=== PATIENT | female | born 1970 | race African-American/Black ===

== ENCOUNTER 2017-06-25 19:40 | Emergency (ER) | payer OTHER ==
[~2017-06-25] VITALS: Ht 160 cm; Wt 115.0 kg
[2017-06-25 23:40] VITALS: BP 200/114
[2017-06-26] MEDS ORDERED: CLONIDINE 0.2MG TABLET PO ONE (00:45)
== END 2017-06-26 02:14 | disposition home or self-care (01) ==
LOC: ER 19:40
DX: R60.0 Localized edema (principal); M79.662 Pain in left lower leg; I10 Essential (primary) hypertension
CPT/HCPCS: 93971; 99284; J7030; Z7610

== ENCOUNTER 2022-03-23 17:20 | Inpatient (IN) | payer OTHER ==
[~2022-03-23] VITALS: Ht 162.6 cm; Wt 100.4 kg
[2022-03-23] MEDS ORDERED: SODIUM CHLORIDE 0.9% 1,000 ML IV ONE (18:00)
[2022-03-23 18:16] LABS: MEAN CORPUSCULAR HEMOGLOBIN 12.6 pg (28.0-32.0); MEAN CORPUSCULAR VOLUME 51.7 fL (81.0-99.0); RED CELL DISTRIBUTION WIDTH 25.6 % (11.6-14.6)
[2022-03-23 18:22] LABS: HEMATOCRIT. 14.5 % (36.0-48.0); HEMOGLOBIN. 3.5 g/dL (12.0-16.0)
[2022-03-23 18:24] LABS: HCG SCREEN NEGATIVE
[2022-03-23 18:26] LABS: CHLORIDE 112 mEq/L (98-107)
[2022-03-23 18:28] LABS: INR 1.1; PARTIAL THROMBOPLASTIN TIME 21.8 sec (23.4-31.0); PROTHROMBIN TIME 11.3 sec (9.6-11.0)
[2022-03-23 18:40] LABS: PLATELET 314 x1000/uL (130-400)
[2022-03-23 18:41] LABS: MEAN PLATELET VOLUME 8.8 fl (7.4-10.4)
[2022-03-23 18:42] LABS: PLATELET ESTIMATE NORMAL
[2022-03-23] MEDS ORDERED: ONDANSETRON HCL 4MG/2ML INJ IV PRN (19:30)
[2022-03-23] MEDS ORDERED: KETOROLAC 15MG/ML VIAL IV PRN (19:30)
[2022-03-23] MEDS ORDERED: DOCUSATE SODIUM 100MG CAPSULE PO PRN (19:30)
[2022-03-23] MEDS ORDERED: NITROGLYCERIN 0.4MG TABLET SL SL PRN (19:30)
[2022-03-23] MEDS ORDERED: GUAIFENESIN 200MG/10ML SUGAR FREE UDC PO PRN (19:30)
[2022-03-23] MEDS ORDERED: ACETAMINOPHEN 325MG TABLET PO PRN ×2 (19:30)
[2022-03-23] MEDS ORDERED: ZOLPIDEM TARTRATE 5MG TABLET PO PRN (19:30)
[2022-03-23] MEDS ORDERED: MAGNESIUM/ALUMINUM HYDROXIDE/SIMETHICONE 30ML UDC PO PRN (19:30)
[2022-03-23] MEDS ORDERED: IPRATROPIUM/ALBUTEROL 0.5-3(2.5)MG/3ML NEB NEB PRN (19:30)
[2022-03-23] MEDS ORDERED: POTASSIUM CHLORIDE 20MEQ TABLET SR PO NR (20:00)
[2022-03-23] MEDS: AMLODIPINE 10MG TABLET PO SCH (20:19)
[2022-03-23 20:30] LABS: FOLIC ACID (FOLATE) SERUM >20 ng/mL ng/mL (>5.38); VITAMIN B12 SERUM 449 pg/mL (211-911)
[2022-03-23] MEDS: FAMOTIDINE 20MG TABLET PO SCH (23:18)
[2022-03-23] MEDS: METOPROLOL TARTRATE 25MG TABLET PO SCH (23:18)
[2022-03-23 23:38] LABS: MEAN CORPUSCULAR HEMOGLOBIN 15.3 pg (28.0-32.0); MEAN CORPUSCULAR VOLUME 56.5 fL (81.0-99.0); MEAN PLATELET VOLUME 8.4 fl (7.4-10.4); PLATELET 260 x1000/uL (130-400); RED BLOOD CELL COUNT 2.89 mill/uL (4.2-5.4); RED CELL DISTRIBUTION WIDTH 30.2 % (11.6-14.6)
[2022-03-23 23:44] LABS: HEMATOCRIT. 16.3 % (36.0-48.0); HEMOGLOBIN. 4.4 g/dL (12.0-16.0)
[2022-03-23 23:56] LABS: CREATINE KINASE 51 IU/L (26-192); CREATINE KINASE MB FRACTION < 1.0 ng/mL (0.5-3.6)
[2022-03-24] VITALS (10 sets, daily range): BP systolic 100–180; BP diastolic 69–92
[2022-03-24 04:32] LABS: PLATELET ESTIMATE NORMAL
[2022-03-24] MEDS ORDERED: HYDR25TA PO (05:19)
[2022-03-24] MEDS ORDERED: ATEN50TA PO (05:20)
[2022-03-24] MEDS: METOPROLOL TARTRATE 25MG TABLET PO SCH ×2 (09:00→20:07)
[2022-03-24] MEDS: FAMOTIDINE 20MG TABLET PO SCH ×2 (10:19→20:07)
[2022-03-24] MEDS: AMLODIPINE 10MG TABLET PO SCH (10:19)
[2022-03-24 15:51] LABS: BASOPHILS % 1.9 % (0.0-2.0); EOSINOPHILS % 1.3 % (0.0-5.0); LYMPHOCYTES % 16.9 % (20.0-50.0); MEAN CORPUSCULAR HEMOGLOBIN 17.5 pg (28.0-32.0); MEAN CORPUSCULAR VOLUME 62.4 fL (81.0-99.0); MEAN PLATELET VOLUME 8.7 fl (7.4-10.4); MONOCYTES % 8.4 % (2.0-8.0); NEUTROPHILS % 71.5 % (40.0-76.0); PLATELET 316 x1000/uL (130-400); RED BLOOD CELL COUNT 3.43 mill/uL (4.2-5.4)
[2022-03-24 16:04] LABS: CHLORIDE 112 mEq/L (98-107)
[2022-03-24 16:08] LABS: HEMATOCRIT. 21.4 % (36.0-48.0)
[2022-03-24 16:11] LABS: PHOSPHORUS 2.5 mg/dL (2.5-4.9)
[2022-03-24 16:15] LABS: CREATINE KINASE 51 IU/L (26-192); CREATINE KINASE MB FRACTION < 1.0 ng/mL (0.5-3.6)
[2022-03-24 16:31] LABS: PLATELET ESTIMATE NORMAL
[2022-03-24] MEDS: IRON SUCROSE COMPLEX 100 MG/5 ML ML IV SCH (18:41)
[2022-03-25] VITALS (11 sets, daily range): BP systolic 132–174; BP diastolic 72–94
[2022-03-25] MEDS: CLONIDINE 0.1MG TABLET PO PRN (03:04)
[2022-03-25] MEDS ORDERED: IRON SUCROSE COMPLEX 100 MG/5 ML ML IV SCH (09:00)
[2022-03-25] MEDS: FAMOTIDINE 20MG TABLET PO SCH ×2 (09:13→20:07)
[2022-03-25] MEDS: METOPROLOL TARTRATE 25MG TABLET PO SCH ×2 (09:14→20:07)
[2022-03-25] MEDS: AMLODIPINE 10MG TABLET PO SCH (09:15)
[2022-03-25 09:44] LABS: HEMATOCRIT 24.6 % (36.0-48.0); HEMOGLOBIN 7.3 g/dL (12.0-16.0); MEAN CORPUSCULAR HEMOGLOBIN 18.9 pg (28.0-32.0); MEAN CORPUSCULAR VOLUME 63.7 fL (81.0-99.0); PLATELET 278 x1000/uL (130-400); RED BLOOD CELL COUNT 3.86 mill/uL (4.2-5.4); RED CELL DISTRIBUTION WIDTH 38.7 % (11.6-14.6)
[2022-03-25 09:54] LABS: INR 1.1; PROTHROMBIN TIME 11.9 sec (9.6-11.0)
[2022-03-25] MEDS: IRON SUCROSE COMPLEX 100 MG/5 ML ML IV SCH (18:56)
[2022-03-26] VITALS (10 sets, daily range): BP systolic 125–169; BP diastolic 72–92
[2022-03-26 06:26] LABS: MEAN CORPUSCULAR HEMOGLOBIN 18.7 pg (28.0-32.0); MEAN CORPUSCULAR VOLUME 63.6 fL (81.0-99.0); MEAN PLATELET VOLUME 8.3 fl (7.4-10.4); PLATELET 276 x1000/uL (130-400); RED BLOOD CELL COUNT 3.63 mill/uL (4.2-5.4)
[2022-03-26 06:39] LABS: HEMATOCRIT. 23.1 % (36.0-48.0); HEMOGLOBIN. 6.8 g/dL (12.0-16.0)
[2022-03-26 06:47] LABS: CHLORIDE 113 mEq/L (98-107)
[2022-03-26] MEDS: CLONIDINE 0.1MG TABLET PO PRN (08:26)
[2022-03-26] MEDS: METOPROLOL TARTRATE 25MG TABLET PO SCH (08:26)
[2022-03-26] MEDS: AMLODIPINE 10MG TABLET PO SCH (08:27)
[2022-03-26] MEDS: FAMOTIDINE 20MG TABLET PO SCH (08:27)
[2022-03-26] MEDS ORDERED: SENN-257 MT (09:33)
[2022-03-26] MEDS ORDERED: FERR324T4 MT (09:33)
[2022-03-26] MEDS ORDERED: AMLO10TA4 MT (09:33)
[2022-03-26 10:23] LABS: PLATELET ESTIMATE NORMAL
== END 2022-03-26 14:20 | disposition home or self-care (01) | DRG 760 ==
LOC: ER 17:20 → MICUSO 19:21 → EDBEDREQ 20:07 → EDBEDREQTM 20:07 → 8WST 03-24 02:20
PROVIDERS: ADMIT Internal Medicine; ATTEND Internal Medicine
PROC: 30233N1 Transfusion of Nonautologous Red Blood Cells into Peripheral Vein, Percutaneous Approach (ICD-10-PCS; principal; 2022-03-25)
DX: D25.9 Leiomyoma of uterus, unspecified (principal); I31.3 Pericardial effusion (noninflammatory); D62 Acute posthemorrhagic anemia; E66.9 Obesity, unspecified; E83.51 Hypocalcemia; E87.6 Hypokalemia; N92.0 Excessive and frequent menstruation with regular cycle; N93.8 Other specified abnormal uterine and vaginal bleeding; I10 Essential (primary) hypertension; Z68.38 Body mass index [BMI] 38.0-38.9, adult
CPT/HCPCS: 36415; 71045; 76830; 76856; 80053; 80320; 82550; 82553; 82607; 82746; 83036; 83540; 83550; 83735; 84100; 84443; 84484; 84703; 85025; 85027; 86850; 86900; 86920; 93005; 93970; 99285; J1885; J7030; P9016; G0480

== ENCOUNTER 2024-04-05 22:11 | Inpatient (IN) | payer MEDICAID, OTHER ==
[~2024-04-05] VITALS: Ht 160 cm; Wt 107.1 kg
[~2024-04-05 22:11] MED LIST: AMLO10TA4 MT; ATEN50TA PO; FERR324T4 MT; SENN-257 MT
[2024-04-05 23:24] LABS: MEAN CORPUSCULAR HEMOGLOBIN 12.9 pg (28.0-32.0); MEAN CORPUSCULAR HGB CONC 25.4 g/dL (31.0-37.0); MEAN CORPUSCULAR VOLUME 50.7 fL (81.0-99.0); MEAN PLATELET VOLUME 8.4 fl (7.4-10.4); PLATELET 348 x1000/uL (130-400); RED BLOOD CELL COUNT 3.75 mill/uL (4.2-5.4); RED CELL DISTRIBUTION WIDTH 25.8 % (11.6-14.6); WHITE BLOOD COUNT 11.6 x1000/uL (4.5-11.0)
[2024-04-05 23:31] LABS: CARBON DIOXIDE 24 mEq/L (21-32); CHLORIDE 105 mEq/L (98-107); POTASSIUM 3.4 mEq/L (3.5-5.1); SODIUM 137 mEq/L (136-145)
[2024-04-05 23:32] LABS: CALCIUM 9.7 mg/dL (8.7-10.4); HEMOGLOBIN. 4.8 g/dL (12.0-16.0)
[2024-04-05 23:33] LABS: DIFFERENTIAL COMMENT 1
[2024-04-05 23:37] LABS: GLUCOSE 113 mg/dL (70-105); UREA NITROGEN BLOOD 9 mg/dL (9-23)
[2024-04-05 23:39] LABS: TROPONIN I HIGH SENSITIVITY 92 ng/L (3.0-34)
[2024-04-06] VITALS (9 sets, daily range): BP systolic 153–178; BP diastolic 78–98; PULSE 75–88; RESP 18–30; TEMP 98.4–100.7
[2024-04-06 00:09] LABS: HCG SCREEN NEGATIVE
[2024-04-06 01:15] LABS: ATYPICAL LYMPHOCYTES 1; GIANT PLATELETS FEW; PLATELET ESTIMATE NORMAL
[2024-04-06 01:16] LABS: HYPOCHROMASIA 2+; MICROCYTOSIS 3+; OVALOCYTES 2+; TARGET CELLS 2+
[2024-04-06 01:17] LABS: TEAR DROP CELLS 2+
[2024-04-06] MEDS: FUROSEMIDE 40MG/4ML VIAL IVP NR (06:05)
[2024-04-06] MEDS: FUROSEMIDE 40MG/4ML VIAL IVP ONE (06:07)
[2024-04-06] MEDS ORDERED: IPRATROPIUM/ALBUTEROL 0.5-3(2.5)MG/3ML NEB HHN PRN (09:00)
[2024-04-06] MEDS ORDERED: DIPHENHYDRAMINE 50MG/ML VIAL IV PRN (09:00)
[2024-04-06] MEDS ORDERED: ONDANSETRON HCL 4MG/2ML INJ IV PRN (09:00)
[2024-04-06 12:22] LABS: MEAN CORPUSCULAR HEMOGLOBIN 15.9 pg (28.0-32.0); MEAN CORPUSCULAR HGB CONC 28.1 g/dL (31.0-37.0); MEAN CORPUSCULAR VOLUME 56.5 fL (81.0-99.0); MEAN PLATELET VOLUME 8.7 fl (7.4-10.4); PLATELET 255 x1000/uL (130-400); RED BLOOD CELL COUNT 4.44 mill/uL (4.2-5.4); WHITE BLOOD COUNT 7.8 x1000/uL (4.5-11.0)
[2024-04-06 12:33] LABS: DIFFERENTIAL COMMENT 1
[2024-04-06 12:37] LABS: HEPATITIS B SURFACE ANTIGEN NEGATIVE (Negative)
[2024-04-06 12:40] LABS: HEMATOCRIT. 25.1 % (36.0-48.0)
[2024-04-06 12:56] LABS: IRON 23 ug/dL (50-170)
[2024-04-06 12:58] LABS: HEPATITIS C AB NON REACTIVE (Neg) (Negative)
[2024-04-06] MEDS: CEFTRIAXONE 1GM/50ML 50 ML IV SCH (12:58)
[2024-04-06 12:59] LABS: TOTAL IRON BINDING CAPACITY 318 ug/dl (250-425)
[2024-04-06] MEDS: CLONIDINE 0.1MG TABLET PO PRN (12:59)
[2024-04-06 13:02] LABS: VITAMIN B12 SERUM 474 pg/mL (211-911)
[2024-04-06 13:03] LABS: FERRITIN 2 ng/mL (10-291)
[2024-04-06 14:30] LABS: ANISOCYTOSIS 4+; MICROCYTOSIS 4+; PLATELET ESTIMATE NORMAL
[2024-04-06 14:31] LABS: HYPOCHROMASIA 2+
[2024-04-06 18:48] LABS: CLARITY URINE CLEAR (CLEAR); COLOR URINE YELLOW (YELLOW); GLUCOSE URINE NEGATIVE (NEGATIVE); KETONES URINE NEGATIVE (NEGATIVE); LEUKOCYTE ESTERASE URINE NEGATIVE (NEGATIVE); NITRITE URINE NEGATIVE (NEGATIVE); OCCULT BLOOD URINE NEGATIVE (NEGATIVE); PH URINE 6.5 (4.5-8.0); PROTEIN URINE 1+ (NEGATIVE); SPECIFIC GRAVITY URINE 1.017 (1.005-1.030)
[2024-04-06] MEDS: IRON SUCROSE COMPLEX 100 MG/5 ML ML IV SCH (18:52)
[2024-04-06 19:10] LABS: BACTERIA URINE NONE SEEN; RBC URINE 0-2 /hpf (0-2); SQUAMOUS EPITHELIAL CELL URINE 1+ /lpf (RARE/1+)
[2024-04-06] MEDS: ACETAMINOPHEN 325MG TABLET PO PRN (20:34)
[2024-04-06 20:55] LABS: HEMATOCRIT. 27.6 % (36.0-48.0); HEMOGLOBIN. 7.5 g/dL (12.0-16.0); MEAN CORPUSCULAR HEMOGLOBIN 16.6 pg (28.0-32.0); MEAN CORPUSCULAR HGB CONC 27.2 g/dL (31.0-37.0); MEAN CORPUSCULAR VOLUME 61.2 fL (81.0-99.0); MEAN PLATELET VOLUME 8.9 fl (7.4-10.4); PLATELET 248 x1000/uL (130-400); RED BLOOD CELL COUNT 4.51 mill/uL (4.2-5.4); RED CELL DISTRIBUTION WIDTH 36.4 % (11.6-14.6); WHITE BLOOD COUNT 7.8 x1000/uL (4.5-11.0)
[2024-04-06 20:56] LABS: DIFFERENTIAL COMMENT 1
[2024-04-06 21:13] LABS: ANISOCYTOSIS 3+; HYPOCHROMASIA 3+; MICROCYTOSIS 3+; PLATELET ESTIMATE NORMAL
[2024-04-07] VITALS: BP 160/97; RESP 16; TEMP 98.1
[2024-04-07 04:00] VITALS: BP 149/88; PULSE 69; RESP 12; TEMP 98.2
[2024-04-07] MEDS: PANTOPRAZOLE 40MG DR TABLET PO SCH (06:13)
[2024-04-07 07:23] LABS: HEMATOCRIT. 25.7 % (36.0-48.0); HEMOGLOBIN. 7.3 g/dL (12.0-16.0); MEAN CORPUSCULAR HEMOGLOBIN 16.8 pg (28.0-32.0); MEAN CORPUSCULAR HGB CONC 28.4 g/dL (31.0-37.0); MEAN CORPUSCULAR VOLUME 59.2 fL (81.0-99.0); MEAN PLATELET VOLUME 8.9 fl (7.4-10.4); PLATELET 230 x1000/uL (130-400); RED BLOOD CELL COUNT 4.33 mill/uL (4.2-5.4); RED CELL DISTRIBUTION WIDTH 36.9 % (11.6-14.6)
[2024-04-07 07:28] LABS: DIFFERENTIAL COMMENT 1
[2024-04-07 07:51] LABS: CARBON DIOXIDE 25 mEq/L (21-32); CHLORIDE 107 mEq/L (98-107); POTASSIUM 3.7 mEq/L (3.5-5.1); SODIUM 140 mEq/L (136-145)
[2024-04-07 07:52] LABS: CALCIUM 9.5 mg/dL (8.7-10.4)
[2024-04-07 07:57] LABS: CREATININE 0.9 mg/dL (0.6-1.0); GLUCOSE 89 mg/dL (70-105); UREA NITROGEN BLOOD 10 mg/dL (9-23)
[2024-04-07 08:00] VITALS: BP 159/92; PULSE 58; RESP 16; TEMP 98.1
[2024-04-07 12:00] VITALS: BP 162/88; PULSE 78; RESP 24; TEMP 98.4
[2024-04-07 16:00] VITALS: BP 187/105; PULSE 77; RESP 17; TEMP 98.1
[2024-04-07 20:15] VITALS: BP 159/97; PULSE 69; RESP 22; TEMP 97.1
[2024-04-07 20:18] LABS: ANISOCYTOSIS 3+; HYPOCHROMASIA 3+; MICROCYTOSIS 3+; PLATELET ESTIMATE NORMAL
[2024-04-08] VITALS (8 sets, daily range): BP systolic 152–178; BP diastolic 94–108; PULSE 62–83; RESP 16–20; TEMP 97.4–98.6; O2SAT 96–99
[2024-04-08 07:12] LABS: CALCIUM 8.8 mg/dL (8.7-10.4); CARBON DIOXIDE 25 mEq/L (21-32); CHLORIDE 108 mEq/L (98-107); HEMOGLOBIN. 7.5 g/dL (12.0-16.0); MEAN CORPUSCULAR HEMOGLOBIN 16.9 pg (28.0-32.0); MEAN CORPUSCULAR HGB CONC 28.7 g/dL (31.0-37.0); MEAN CORPUSCULAR VOLUME 58.8 fL (81.0-99.0); POTASSIUM 3.4 mEq/L (3.5-5.1); RED BLOOD CELL COUNT 4.42 mill/uL (4.2-5.4); RED CELL DISTRIBUTION WIDTH 37.8 % (11.6-14.6); SODIUM 141 mEq/L (136-145); WHITE BLOOD COUNT 5.7 x1000/uL (4.5-11.0)
[2024-04-08 07:18] LABS: CREATININE 0.8 mg/dL (0.6-1.0); GLUCOSE 84 mg/dL (70-105); UREA NITROGEN BLOOD 9 mg/dL (9-23)
[2024-04-08 07:35] LABS: FOLIC ACID (FOLATE) SERUM > 20.00 ng/mL (>5.38)
[2024-04-08 08:14] LABS: DIFFERENTIAL COMMENT 1
[2024-04-08] MEDS: AMLODIPINE 5MG TABLET PO SCH ×2 (09:32→16:32)
[2024-04-08 12:28] LABS: ANISOCYTOSIS 4+; HYPOCHROMASIA 1+; MICROCYTOSIS 4+
[2024-04-08 12:29] LABS: OVALOCYTES 1+; PLATELET ESTIMATE NORMAL
[2024-04-08 12:31] LABS: MEAN PLATELET VOLUME 8.6 fl (7.4-10.4); PLATELET 182 x1000/uL (130-400)
[2024-04-08] MEDS ORDERED: AMLO5TAB88 PO (12:45)
[2024-04-08] MEDS ORDERED: FERR324T4 MT (12:45)
[2024-04-08] MEDS: POTASSIUM CHLORIDE 20MEQ TABLET SR PO NR (12:59)
[2024-04-08] MEDS: HYDRALAZINE HCL 50MG TABLET PO SCH (16:32)
[2024-04-08] MEDS ORDERED: AMLODIPINE 5MG TABLET PO SCH (21:00)
== END 2024-04-08 18:35 | disposition left against medical advice (07) | DRG 663 ==
LOC: ER 22:11 → 5WST 04-06 00:45 → EDBEDREQTM 04-06 01:19 → EDBEDREQ 04-06 01:19 → EDBEDREQDT 04-06 01:19 → 3WST 04-06 08:52
PROVIDERS: ADMIT Internal Medicine; ATTEND Internal Medicine
PROC: 30233N1 Transfusion of Nonautologous Red Blood Cells into Peripheral Vein, Percutaneous Approach (ICD-10-PCS; principal; 2024-04-06)
DX: D50.9 Iron deficiency anemia, unspecified (principal); I11.0 Hypertensive heart disease with heart failure; I50.9 Heart failure, unspecified; D25.9 Leiomyoma of uterus, unspecified; I16.0 Hypertensive urgency; Z20.822 Contact with and (suspected) exposure to COVID-19; Z53.29 Procedure and treatment not carried out because of patient's decision for other reasons
CPT/HCPCS: 36415; 71045; 74176; 80048; 81003; 82607; 82728; 82746; 83540; 83550; 83880; 84145; 84484; 84703; 85025; 85044; 86705; 86850; 86900; 86920; 87340; 87426; 93005; 93970; 99285; J0696; J1940; P9016